=== PATIENT | male | born 1940 | race Caucasian/White ===

== ENCOUNTER → 2016-10-12 | Day surgery (SDC) | payer OTHER ==
[2016-10-08 09:31] VITALS: Ht 179.1 cm; Wt 85.0 kg
[~2016-10-12] VITALS: Ht 179.1 cm; Wt 85.0 kg
[~2016-10-12] MED LIST: AMLO5TAB2 PO; ASPI325T39 PO; ATOR-26 PO; LEVO75TA PO; LIDOCAINE HCL 2% 2 ML VIAL (20MG/ML) ONE; LISI-725 PO; METO1TAB66 PO; METO25TA3 PO; MIDAZOLAM HCL 1 MG/ML 2ML VIAL ONE; NTRGSL/4 UT; ONDANSETRON INJ 2 MG/ML 2 ML VIAL ONE; PRLSR20 PO; PROPOFOL IV EMULSION 10 MG/ML 20 ML VIAL IV ONE; SODIUM CHLORIDE 0.9% 500ML 500 ML IV ONE
--- NOTE | 2016-10-12 08:23 | Endo History and Physical ---
History & Physical Date of Service: Oct 12, 2016. Chief Complaint: abdominal pain Referring Physician: Dr. Shawn Perry History of Present Illness 75 yo CM who presents for colonoscopy secondary to abdominal pain. Past Surgical History Hx Cardiac Surgery: Yes (HEART CATH, CABG X3 VESSELS) Hx Internal Defibrillator: No Hx Pacemaker: No Hx Abdominal Surgery: Yes (HERNIA REPAIR, MANJIT) Hx of Implantable Prosthesis: No Hx Post-Op Nausea and Vomiting: No Hx Cancer Surgery: Yes (PROSTATECTOMY) Hx Thoracic Surgery: No Hx Orthopedic: No Hx Urinary Tract Surgery: No Family History None Social History Smoking Status: Never Smoker Hx Substance Use: No Hx Alcohol Use: Yes (RARE) Allergies Coded Allergies: No Known Allergies (Verified , 10/12/16) Current Medications Reported Home Medications Medications Dose Route/Sig Max Daily Dose Days Date Category Dose Instructions Lipitor (Atorvastatin Calcium) 80 Mg Tab 80 Mg PO QAM 10/08/16 Reported Nitrostat (Nitroglycerin) 0.4 Mg Tab 0.4 Mg UT PRN PRN 10/08/16 Reported Norvasc (Amlodipine Besylate) 5 Mg Tab 1 Tab PO QPM 05/16/16 Reported Prilosec (Omeprazole) 20 Mg Capcr 20 Mg PO DAILY PRN 05/16/16 Reported Toprol-Xl (Metoprolol Succinate) 25 Mg Tabcr 25 Mg PO QAM 03/29/16 Reported Aspirin Ec (Aspirin) 325 Mg Tab 325 Mg PO QAM 03/29/16 Reported Synthroid (Levothyroxine Sodium) 75 Mcg Tab 75 Mcg PO QPM 03/29/16 Reported Toprol Xl (Metoprolol Succinate) 50 Mg Tab 50 Mg PO QAM 03/29/16 Reported pt to take total of 75 mg metoprolol Zestril (Lisinopril) 20 Mg Tab 40 Mg PO QAM 03/23/13 Reported Vital Signs Weight (Kilograms): 85 Height (Feet): 5 Height (Inches): 10.5 Date Time Temp Pulse Resp B/P Pulse Ox O2 Delivery O2 Flow Rate FiO2 10/12/16 08:14 36.5 65 18 155/64 97 Room Air Physical Exam General Appearance: WD/WN, no apparent distress Respiratory/Chest: Auscultation: breath sounds normal Cardiovascular: Heart Auscultation: RRR Abdomen: Bowel Sounds: normal Inspection & Palpation: soft, non-distended, no tenderness, guarding & rebound Assessment and Plan Assessment: 75 yo CM who presents for colonoscopy secondary to abdominal pain. Plan: Proceed with colonoscopy.
--- NOTE | 2016-10-12 08:48 | Discharge Instructions ---
Endoscopy Patient Instructions Date / Procedure(s) Performed Oct 12, 2016. Colonoscopy Allergy Information Coded Allergies: No Known Allergies (Verified , 10/12/16) Discharge Date / Findings Oct 12, 2016. Diverticulosis Internal hemorrhoids Medication Instructions Stopped Medication(s): took ASA yesterday OK to resume all medications today as prescribed. Reported Home Medications Medications Dose Route/Sig Max Daily Dose Days Date Category Dose Instructions Lipitor (Atorvastatin Calcium) 80 Mg Tab 80 Mg PO QAM 10/08/16 Reported Nitrostat (Nitroglycerin) 0.4 Mg Tab 0.4 Mg UT PRN PRN 10/08/16 Reported Norvasc (Amlodipine Besylate) 5 Mg Tab 1 Tab PO QPM 05/16/16 Reported Prilosec (Omeprazole) 20 Mg Capcr 20 Mg PO DAILY PRN 05/16/16 Reported Toprol-Xl (Metoprolol Succinate) 25 Mg Tabcr 25 Mg PO QAM 03/29/16 Reported Aspirin Ec (Aspirin) 325 Mg Tab 325 Mg PO QAM 03/29/16 Reported Synthroid (Levothyroxine Sodium) 75 Mcg Tab 75 Mcg PO QPM 03/29/16 Reported Toprol Xl (Metoprolol Succinate) 50 Mg Tab 50 Mg PO QAM 03/29/16 Reported pt to take total of 75 mg metoprolol Zestril (Lisinopril) 20 Mg Tab 40 Mg PO QAM 03/23/13 Reported Provider Instructions Activity Restrictions - No exercising or heavy lifting for 24 hours. - Do not drink alcohol the day of the procedure. - Do not drive a car or operate machinery until the day after the procedure. - Do not make any important decisions or sign important papers in 24 hours after the procedure. Following Day: - Return to full activity which may include returning to work/school. Diet Start your diet with liquids and light foods (jello, soup, juice, toast). Then eat your usual diet if not nauseated. Treatment For Common After Affects For mild abdominal pain, bloating, or excessive gas: - Rest - Eat lightly - Lie on right side Follow-Up Information Follow-up with Dr. Shawn Perry as scheduled Anesthesia Information What You Should Know You have had a procedure that required some medicine to reduce anxiety and discomfort. This treatment is called moderate sedation. After receiving the treatment, you may be sleepy, but you will be able to breathe on your own. The effects of the treatment may last for several hours. Follow these instructions along with Activity/Diet recommendations noted above: * Do NOT do anything where dizziness or clumsiness would be dangerous. * Rest quietly at home today, then you can be up and about tomorrow. * Have a responsible person stay with you the rest of today. * You may have had an I.V. today. If so, you may take the dressing off later today. Recommendations Call your doctor if: * Trouble breathing * Continuous vomiting for more than 24 hours * Temperature above 101 degrees * Severe abdominal pain or bloating * Pain not relieved by pain medicine ordered * There is increased drainage or redness from any incision * A large amount of rectal bleeding greater than 2-3 tablespoons. (If you had a polyp/s removed or have hemorrhoids, a small amount of blood - from the rectum is to be expected.) * You have any unanswered questions or concerns. IN THE EVENT OF A SERIOUS EMERGENCY, GO TO THE NEAREST EMERGENCY ROOM Your discharge instructions were prepared by provider Roni Morris. Patient Instructions Signature Page Carl Posey Patient (or Guardian) Signature/Date: I have read and understand the instructions given to me by my caregivers. Caregiver/RN/Doctor Signature/Date: The above-named patient and/or guardian has received patient instructions on this date. + Original Patient Signature Page (only) stays with chart. Please make copy for patient.
--- NOTE | 2016-10-12 08:59 | GI REPORT ---
Procedure Date: 10/12/2016 8:23 AM Procedure: Colonoscopy Indications: Generalized abdominal pain Medicines: Monitored Anesthesia Care Complications: No immediate complications. Estimated Blood Loss: Estimated blood loss: none. Procedure: Pre-Anesthesia Assessment: - Prior to the procedure, a History and Physical was performed, and patient medications and allergies were reviewed. The patient's tolerance of previous anesthesia was also reviewed. The risks and benefits of the procedure and the sedation options and risks were discussed with the patient. All questions were answered, and informed consent was obtained. Prior Anticoagulants: The patient has taken aspirin, last dose was 1 day prior to procedure. ASA Grade Assessment: III - A patient with severe systemic disease. After reviewing the risks and benefits, the patient was deemed in satisfactory condition to undergo the procedure. After I obtained informed consent, the scope was passed under direct vision. Throughout the procedure, the patient's blood pressure, pulse, and oxygen saturations were monitored continuously. The scope was introduced through the anus and advanced to the terminal ileum. The colonoscopy was performed without difficulty. The patient tolerated the procedure well. The quality of the bowel preparation was good. The terminal ileum, ileocecal valve, appendiceal orifice, and rectum were photographed. Findings: Multiple small-mouthed diverticula were found in the sigmoid colon. Non-bleeding internal hemorrhoids were found during retroflexion. The hemorrhoids were small. Impression: - Diverticulosis in the sigmoid colon. - Non-bleeding internal hemorrhoids. - No specimens collected. Recommendation: - Resume previous diet. - Continue present medications. - No repeat colonoscopy due to age and the absence of advanced adenomas. - Return to primary care physician as previously scheduled. Roni Morris, 10/12/2016 8:58:30 AM This report has been signed electronically. Note Initiated On: 10/12/2016 8:23 AM
[2016-10-12 09:15] VITALS: BP 126/63; PULSE 56; O2SAT 97
--- NOTE | 2016-10-12 09:29 | Anesthesia Progress Nt - [facility] ---
Anesthesia Post Op Note Date & Time Oct 12, 2016 at 09:29 Vital Signs Pain Intensity: 0 Vital Signs Past 12 Hours Date Time Temp Pulse Resp B/P Pulse Ox O2 Delivery O2 Flow Rate FiO2 10/12/16 09:15 56 16 126/63 97 Room Air 10/12/16 09:00 60 16 132/67 95 Room Air 10/12/16 08:45 60 16 90/50 97 Room Air 10/12/16 08:14 36.5 65 18 155/64 97 Room Air Notes Mental Status: alert / awake / arousable, participated in evaluation Pt Amnestic to Procedure: Yes Nausea / Vomiting: adequately controlled Pain: adequately controlled Airway Patency, RR, SpO2: stable & adequate BP & HR: stable & adequate Hydration State: stable & adequate Anesthetic Complications: no major complications apparent
== END | disposition home or self-care (01) ==
LOC: C.GI 07:53
PROVIDERS: ATTEND Internal Medicine
DX: K57.30 Diverticulosis of large intestine without perforation or abscess without bleeding (principal); K64.8 Other hemorrhoids; Z98.890 Other specified postprocedural states; Z95.1 Presence of aortocoronary bypass graft; Z79.82 Long term (current) use of aspirin

== ENCOUNTER → 2017-03-01 | Outpatient (CLI) | payer OTHER ==
[~2017-03-01] MED LIST changes: -LIDOCAINE HCL 2% 2 ML VIAL (20MG/ML) ONE; +METO-452 PO; -METO1TAB66 PO; -MIDAZOLAM HCL 1 MG/ML 2ML VIAL ONE; -ONDANSETRON INJ 2 MG/ML 2 ML VIAL ONE; -PROPOFOL IV EMULSION 10 MG/ML 20 ML VIAL IV ONE; -SODIUM CHLORIDE 0.9% 500ML 500 ML IV ONE
[2017-03-01 10:01] LABS: CHOLESTEROL/HDL RATIO 2.2
== END | disposition home or self-care (01) ==
LOC: C.LAB 07:31
PROVIDERS: ATTEND Internal Medicine Cardiovascular Disease
DX: E78.5 Hyperlipidemia, unspecified (principal)

== ENCOUNTER → 2017-05-27 | Outpatient (CLI) | payer OTHER ==
[~2017-05-27] MED LIST changes: -METO-452 PO; +METO1TAB66 PO
[2017-05-27 12:39] LABS: MEAN CELL VOLUME 94.2 fL (80-100); MEAN CORPUSCULAR HEMOGLOBIN 31.7 pg (25-34); MEAN CORPUSCULAR HGB CONC 33.6 g/dl (32-36); MEAN PLATELET VOLUME 11.7 fL (7.4-10.4); PLATELET COUNT 47 K/uL (130-400); RED BLOOD COUNT 4.99 M/uL (4.7-6.1)
[2017-05-27 12:44] LABS: BASO % 0.6 %; BASO ABS # 0.05 K/uL (0-0.2); COMPLETE YES; EOS % 2.7 %; IG% 0.1 %; LYMPH % 25.8 %; LYMPH ABS # 2.14 K/uL (1.2-3.4); NEUT % 64.8 %; PLT ESTIMATE DECREASED
[2017-05-27 12:49] LABS: BLOOD UREA NITROGEN 17 mg/dl (7-18); BUN/CREATININE RATIO 13.8 (10-20); CALCIUM 9.6 mg/dl (8.5-10.1); CARBON DIOXIDE 28 mmol/L (21-32); CHLORIDE 106 mmol/L (98-107); GLUCOSE 80 mg/dl (70-99); POTASSIUM 4.3 mmol/L (3.5-5.1); SODIUM 140 mmol/L (136-145)
[2017-05-27 13:00] LABS: ALKALINE PHOSPHATASE 90 U/L (45-117); ALT/SGPT 51 U/L (12-78); AST/SGOT 35 U/L (15-37)
== END | disposition home or self-care (01) ==
LOC: C.LAB 10:58
PROVIDERS: ATTEND Internal Medicine
DX: E03.9 Hypothyroidism, unspecified (principal); I25.10 Atherosclerotic heart disease of native coronary artery without angina pectoris

== ENCOUNTER → 2017-05-29 | Outpatient (CLI) | payer OTHER ==
[2017-05-29 12:18] LABS: HEMATOCRIT 44.4 % (42-52); MEAN CELL VOLUME 94.7 fL (80-100); MEAN CORPUSCULAR HEMOGLOBIN 31.3 pg (25-34); MEAN CORPUSCULAR HGB CONC 33.1 g/dl (32-36); MEAN PLATELET VOLUME 11.7 fL (7.4-10.4); PLATELET COUNT 49 K/uL (130-400); RED BLOOD COUNT 4.69 M/uL (4.7-6.1); WHITE BLOOD COUNT 7.46 K/uL (4.8-10.8)
[2017-05-29 12:43] LABS: BASO % 0.5 %; BASO ABS # 0.04 K/uL (0-0.2); COMPLETE YES; EOS % 3.4 %; IG% 0.1 %; LYMPH % 35.9 %; LYMPH ABS # 2.68 K/uL (1.2-3.4); MONO % 7.4 %; NEUT % 52.7 %
[2017-05-29 12:50] LABS: THYROID STIMULATING HORMONE 3.71 uIu/ml (0.300-4.500)
== END | disposition home or self-care (01) ==
LOC: C.LABBFT 10:42
PROVIDERS: ATTEND Internal Medicine
DX: I25.10 Atherosclerotic heart disease of native coronary artery without angina pectoris (principal); E03.9 Hypothyroidism, unspecified

== ENCOUNTER → 2017-05-31 | Outpatient (CLI) | payer OTHER ==
--- NOTE | 2017-05-31 09:45 | DIAGNOSTIC IMAGING REPORT ---
ABDOMINAL ULTRASOUND COMPLETE HISTORY: D69.6 Thrombocytopenia ATTENTION; [id number]. COMPARISON: Chest abdomen and pelvis CTA 03/30/2016. FINDINGS: Pancreas: Not well visualized due to the intra-abdominal fat. Liver: Unremarkable. Gallbladder: Cholecystectomy. CBD: 5 mm. Kidneys: No hydronephrosis. The lower poles are partially obscured by overlying bowel gas. Spleen: Normal in size measuring 9 cm in length. Aorta: Normal in caliber. IVC: Patent. IMPRESSION: 1. Cholecystectomy. 2. Normal spleen. 3. The pancreas was not well visualized. Electronically signed by: Sarath Maldonado M.D. 05/31/2017 9:43 AM Dictated Date/Time: 05/31/2017 9:41 AM
== END | disposition home or self-care (01) ==
LOC: C.ULTR 09:14
PROVIDERS: ATTEND Internal Medicine
DX: D69.6 Thrombocytopenia, unspecified (principal)

== ENCOUNTER → 2017-06-11 | Outpatient (CLI) | payer OTHER | END | disposition home or self-care (01) | LOC: C.LAB 10:43 | PROVIDERS: ATTEND Urology | DX: C61 Malignant neoplasm of prostate (principal); D69.6 Thrombocytopenia, unspecified ==

== ENCOUNTER → 2017-09-27 | Outpatient (CLI) | payer OTHER ==
[~2017-09-27] MED LIST changes: +METO-452 PO; -METO1TAB66 PO
== END | disposition home or self-care (01) ==
LOC: C.LAB 08:42
PROVIDERS: ATTEND Internal Medicine
DX: E03.9 Hypothyroidism, unspecified (principal); I25.10 Atherosclerotic heart disease of native coronary artery without angina pectoris

== ENCOUNTER → 2018-05-02 | Outpatient (CLI) | payer OTHER ==
[2018-05-02 17:09] LABS: BASO % 0.3 %; BASO ABS # 0.02 K/uL (0-0.2); EOS % 2.7 %; HEMATOCRIT 44.2 % (42-52); HEMOGLOBIN 14.9 g/dL (14.0-18.0); IG# 0.01 K/uL (0.00-0.02); LYMPH % 31.5 %; MEAN CELL VOLUME 95.1 fL (80-100); MEAN CORPUSCULAR HGB CONC 33.7 g/dl (32-36); MONO % 7.1 %; MONO ABS # 0.52 K/uL (0.11-0.59); NEUT % 58.3 %; NEUT ABS # 4.25 K/uL (1.4-6.5); PLATELET COUNT 190 K/uL (130-400); RED CELL DISTRIBUTION WIDTH CV 13.3 % (11.5-14.5); RED CELL DISTRIBUTION WIDTH SD 46.3 fL (36.4-46.3)
[2018-05-02 17:33] LABS: ALT/SGPT 29 U/L (12-78); AST/SGOT 18 U/L (15-37); BLOOD UREA NITROGEN 14 mg/dl (7-18); CALCIUM 8.9 mg/dl (8.5-10.1); CARBON DIOXIDE 28 mmol/L (21-32); CHOLESTEROL 77 mg/dl (0-200); CREATININE 1.51 mg/dl (0.60-1.40); GLUCOSE 104 mg/dl (70-99); LDL CHOLESTEROL CALCULATED 3 mg/dl; POTASSIUM 4.1 mmol/L (3.5-5.1); SODIUM 141 mmol/L (136-145)
== END | disposition home or self-care (01) ==
LOC: C.LABBFT 11:25
PROVIDERS: ATTEND Internal Medicine Cardiovascular Disease
DX: I25.10 Atherosclerotic heart disease of native coronary artery without angina pectoris (principal); E03.9 Hypothyroidism, unspecified